=== PATIENT | male | born 1950 | race Caucasian/White ===

== ENCOUNTER → 2016-06-28 | Outpatient (CLI) | payer OTHER, MEDICARE ==
--- NOTE | 2016-06-28 11:20 | DX ---
Bilateral Hips, 3 views History: Pain, evaluate for arthritis or chondrocalcinosis, M25.551 Comparison: October 09, 2013 Findings: The femoral heads remain normally located in the bilaterally short acetabula. Degenerative and/or posttraumatic calcification of the lateral left acetabular labrum remains, slightly increased. There is a stable small hypertrophic ridge of the medial left femoral head. There is some subtle deg enerative cyst formation associated with the right hip joint and each lateral acetabulum. Calcificati on of the pubic symphysis cartilage is again present. The SI joints and pubic symphysis remain normal ly aligned. Overall pelvic mineralization remains normal. There are stable bilateral pelvic phlebolit hs. Impression: Little change since September 2013. Please see above.
== END ==
LOC: BMCIMAGING 10:04
PROVIDERS: ATTEND Internal Medicine Rheumatology
DX: M25.551 Pain in right hip (principal); M25.552 Pain in left hip

== ENCOUNTER 2017-04-04 11:51 | Observation (INO) | payer OTHER, MEDICARE ==
--- NOTE | 2017-04-04 12:21 | CPEKG ---
Heart Rate: 46 RR Interval: 1304 P-R Interval: 200 QRSD Interval: 86 QT Interval: 456 QTC Interval: 399 P [place]: 81 QRS [place]: -87 T Wave [place]: 30 EKG Severity - ABNORMAL ECG - EKG Impression: SINUS BRADYCARDIA EKG Impression: LEFT ANTERIOR FASCICULAR BLOCK Electronically Signed By: Jesus Perera 04-Apr-2017 15:18:50
[2017-04-04] MEDS ORDERED: NS 1,000 ML IV ONE (12:34)
[2017-04-04] MEDS ORDERED: ASPIRIN 81 MG CHEWABLE TAB PO ONE (12:49)
[2017-04-04] MEDS ORDERED: NS 500 ML IV ONE (12:51)
[2017-04-04 12:54] LABS: % IMMATURE GRANULYOCYTES 0.1 % (0.0-1.1); ABSOLUTE IMMATURE GRANULOCYTES 0.01 10^3/uL (0.00-0.10); ADD DIFF? NO; ADD MORPH? NO; ADD SCAN? NO; ATYPICAL LYMPHOCYTE FLAG 0 (0-99); FRAGMENT RBC FLAG 0 (0-99); HEMATOCRIT 44.6 % (40.0-51.0); HEMOGLOBIN 15.4 g/dL (13.7-17.5); LEFT SHIFT FLG 0 (0-99); LIPEMIA HEMOLYSIS FLAG 90 (0-99); MEAN CELL HEMOGLOBIN 32.4 pg (27.9-34.1); MEAN CELL HEMOGLOBIN CONCENTR. 34.5 g/dL (32.4-36.7); MEAN CELL VOLUME 93.7 fL (81.5-99.8); MEAN PLATELET VOLUME 9.6 fL (8.7-11.7); PLATELET CLUMPS FLAG 0 (0-99); PLATELET COUNT 229 10^3/uL (150-400); RED BLOOD CELL COUNT 4.76 10^6/uL (4.40-6.38); RED CELL DISTRIBUTION WIDTH 12.1 % (11.5-15.2)
--- NOTE | 2017-04-04 12:56 | EDPHY ---
H & P Time Seen by Provider: 04/04/17 12:39 HPI/ROS: HPI Near fainting. 67-year-old male by private vehicle. This patient reports that he went swimming this morning as he does 3 to 4 times a week. He felt fine while swimming. He reports that he took a shower when he got home and went to his desk to work on his computer. He reports that shortly after he sat down a wave of nausea came over him any felt very lightheaded. He reports that he then got himself to a couch in late down. He started feeling a little bit better but then got up from the couch went back to his computer sat down again and the same thing happen. He stated that he would have lost consciousness if he did not make it to the couch in short order. He reports that he noticed this morning he had some left shoulder aching which has persisted for a few hours. He reports that he has had pain in his left shoulder in the past but it has been sometime. He denies any associated chest pain. No headache. No shortness of breath. No palpitations. No loss of sensation or weakness in his extremities. He is not had a fever. He is not on beta blockers or calcium channel blockers. ROS: Constitutional: No fever, no chills. As above. Eyes: No discharge. No changes in vision. ENT: No sore throat. No nasal congestion or rhinorrhea. Respiratory: No cough. No shortness of breath. Cardiac: No chest pain, no palpitations. Gastrointestinal: No abdominal pain, no vomiting, no diarrhea. Genitourinary: No hematuria. No dysuria or increased frequency with urination. Musculoskeletal: No back pain. No neck pain. No myalgias or arthralgias. Skin: No rashes. Neurological: No headache. No focal weakness or altered sensation. Past medical history: GERD, asthma, poly myalgia rheumatica, lumbar stenosis, right knee surgery. Social history: He is . Currently here by himself. Nonsmoker. Denies alcohol. Physical Exam: General Appearance: Alert, no distress. This patient is responding to questions appropriately and in full sentences. This patient appears well- hydrated and well-nourished. Eyes: Pupils equal and round no pallor or injection. No lid edema, erythema or injection. Respiratory: There are no retractions, lungs are clear to auscultation with good air movement bilaterally. Cardiovascular: Regular rate and rhythm. No murmur. Gastrointestinal: Abdomen is soft and nontender, no masses, bowel sounds normal. No focal tenderness at McBurney's point. No Ngo sign. Neurological: Motor sensory function is grossly intact. Cranial nerves are normal. Gait is normal. Skin: Warm and dry, no rashes. Musculoskeletal: Neck is supple and nontender. Extremities are symmetrical. All joints range without pain or impingement. Psychiatric: No agitation. No depression. Database: EKG: EKG time is 12:19 p.m.; EKG shows a narrow complex normal sinus rhythm with a ventricular rate of 46. The NM, QRS, QT intervals are within normal limits. There are no ST-T wave changes indicative of ischemic or injury pattern. No evidence of right heart strain. No evidence of Brugada syndrome, WPW, hypertrophic cardiomyopathy. Interpreted by me. Imaging: Chest x-ray PA and lateral; the cardiac mediastinal silhouette is unremarkable. No evidence of infiltrate or pneumothorax. No acute cardiopulmonary disease process noted. Interpreted by me. Procedures: Emergency department course: IV placed. He was placed on a cardiac cath lab manager. EKG was obtained and reviewed by myself. He was started on IV normal saline with 500 cc to be given over the next hour. He was given 324 mg of chewed aspirin. Vital signs reviewed. Afebrile and normal except for bradycardia with rates in the upper 40s. 2:30 p.m., patient re-evaluated. Resting comfortably at this time. No chest pain. Denies any symptoms. Results of emergency department workup discussed with him. Plan for admission reviewed. All of his questions were answered. 2:40 p.m., spoke with on-call hospitalist Dr. Woodard. Case discussed in detail with her. She accepts the patient for admission, telemetry observation. Differential Diagnosis: The differential diagnosis on this patient includes but is not limited to near syncope, cardiac arrhythmia, dehydration, vasovagal near syncope. Pulmonary embolism, subarachnoid hemorrhage, CVA, acute coronary syndrome, seizure unlikely. This represents a partial list of diagnoses considered. These considerations are based on history, physical exam, past history, reassessment and diagnostic testing. Smoking Status: Never smoked Constitutional: Initial Vital Signs Temperature (C) 36.5 C 04/04/17 11:54 Heart Rate 49 L 04/04/17 11:54 Respiratory Rate 16 04/04/17 11:54 Blood Pressure 122/63 H 04/04/17 11:54 O2 Sat (%) 98 04/04/17 11:54 O2 Delivery Mode Room Air Allergies/Adverse Reactions: Cephalosporins Allergy (Unknown, Verified 04/04/17 11:53) clarithromycin [From Biaxin] Allergy (Unknown, Verified 04/04/17 11:53) penicillin G [Penicillin G] Allergy (Unknown, Verified 04/04/17 11:53) Rash levofloxacin [From Levaquin] Allergy (Verified 04/04/17 11:53) Sulfa (Sulfonamide Antibiotics) Allergy (Verified 04/04/17 11:53) sulfamethoxazole [From Bactrim] Allergy (Verified 04/04/17 11:53) trimethoprim [From Bactrim] Allergy (Verified 04/04/17 11:53) Home Medications: Medication Instructions Recorded VALACYCLOVIR HCL [Valtrex] 1,000 mg PO PRN 09/02/10 Flonase Nasal Sharon 08/23/14 Medical Decision Making - Diagnostics Imaging Results: Imaging Impressions Chest X-Ray 04/04/17 12:49 Impression: Nothing acute identified. - Data Points Laboratory Results: Laboratory Results 04/04/17 12:41 04/04/17 12:41 04/04/17 04/04/17 04/04/17 12:41 12:41 12:41 WBC 7.09 10^3/uL 10^3/uL (3.80-9.50) RBC 4.76 10^6/uL 10^6/uL (4.40-6.38) Hgb 15.4 g/dL g/dL (13.7-17.5) Hct 44.6 % % (40.0-51.0) MCV 93.7 fL fL (81.5-99.8) MCH 32.4 pg pg (27.9-34.1) MCHC 34.5 g/dL g/dL (32.4-36.7) RDW 12.1 % % (11.5-15.2) Plt Count 229 10^3/uL 10^3/uL (150-400) MPV 9.6 fL fL (8.7-11.7) Neut % (Auto) 78.6 % H % (39.3-74.2) Lymph % (Auto) 13.3 % L % (15.0-45.0) Delta % (Auto) 7.3 % % (4.5-13.0) Eos % (Auto) 0.6 % % (0.6-7.6) Baso % (Auto) 0.1 % L % (0.3-1.7) Nucleat RBC Rel Count 0.0 % % (0.0-0.2) Absolute Neuts (auto) 5.57 10^3/uL 10^3/uL (1.70-6.50) Absolute Lymphs (auto) 0.94 10^3/uL L 10^3/uL (1.00-3.00) Absolute Monos (auto) 0.52 10^3/uL 10^3/uL (0.30-0.80) Absolute Eos (auto) 0.04 10^3/uL 10^3/uL (0.03-0.40) Absolute Basos (auto) 0.01 10^3/uL L 10^3/uL (0.02-0.10) Absolute Nucleated RBC 0.00 10^3/uL 10^3/uL (0-0.01) Immature Gran % 0.1 % % (0.0-1.1) Immature Gran # 0.01 10^3/uL 10^3/uL (0.00-0.10) PT 13.8 SEC SEC (12.0-15.0) INR 1.07 (0.83-1.16) APTT 25.7 SEC SEC (23.0-38.0) Sodium 140 mEq/L mEq/L (134-144) Potassium 4.2 mEq/L mEq/L (3.5-5.2) Chloride 103 mEq/L mEq/L (97-110) Carbon Dioxide 28 mEq/l mEq/l (22-31) Anion Gap 9 mEq/L mEq/L (8-16) BUN 22 mg/dL mg/dL (7-23) Creatinine 1.1 mg/dL mg/dL (0.7-1.3) Estimated GFR > 60 Glucose 83 mg/dL mg/dL (70-100) Calcium 9.2 mg/dL mg/dL (8.5-10.4) Troponin I < 0.012 ng/mL ng/mL (0.000-0.034) Medications Given: Discontinued Medications Aspirin (Aspirin) 324 mg PO EDNOW ONE Stop: 04/04/17 12:50 Last Admin: 04/04/17 12:58 Dose: 324 mg Sodium Chloride (Ns) 1,000 mls @ 0 mls/hr IV ONCE ONE PRN Reason: Wide Open Stop: 04/04/17 12:35 Last Admin: 04/04/17 14:17 Dose: 1,000 mls Sodium Chloride (Ns) 500 mls @ 1,000 mls/hr IV EDNOW ONE PRN Reason: Protocol Stop: 04/04/17 13:20 Last Admin: 04/04/17 13:00 Dose: 500 mls Departure - Departure Disposition: [facility] Inpatient Acute Clinical Impression: Near syncope Referrals: Meliton Flower MD [Primary Care Provider] - As per Instructions
[2017-04-04 13:03] LABS: ANION GAP 9 mEq/L (8-16); CALCIUM 9.2 mg/dL (8.5-10.4); CARBON DIOXIDE 28 mEq/l (22-31); CHLORIDE 103 mEq/L (97-110); CREATININE 1.1 mg/dL (0.7-1.3); GLOMERULAR FILTRATION RATE > 60; GLUCOSE 83 mg/dL (70-100); POTASSIUM 4.2 mEq/L (3.5-5.2); SODIUM 140 mEq/L (134-144)
[2017-04-04 13:08] LABS: INR 1.07 (0.83-1.16); PROTIME(PATIENT) 13.8 SEC (12.0-15.0)
[2017-04-04 13:09] LABS: APTT 25.7 SEC (23.0-38.0)
[2017-04-04 13:15] LABS: TROPONIN I < 0.012 ng/mL (0.000-0.034)
[2017-04-04] MEDS ORDERED: traMADol 50 MG TAB PO PRN (16:42)
[2017-04-04] MEDS ORDERED: ACETAMINOPHEN 325 MG TAB PO PRN (16:44)
[2017-04-04] MEDS ORDERED: ONDANSETRON 4 MG/2 ML VIAL IVP PRN (16:44)
[2017-04-04] MEDS ORDERED: NS 1,000 ML IV SCH (16:45)
[2017-04-04] MEDS ORDERED: ZOLPIDEM TARTRATE 5 MG TAB PO PRN (16:45)
--- NOTE | 2017-04-04 18:12 | GHP ---
[f rep st] HISTORY AND PHYSICAL DATE OF ADMISSION: 04/04/2017 CHIEF COMPLAINT: Lightheadedness. HISTORY: Jamal is a 67-year-old male who has episodes of recurrent lightheadedness prompting him t o come to the emergency room. He swims every morning in an outdoor pool, and this morning it was garo te chilly so we decided to get in the hot tub before he exercised, which he does not typically do. Marry edmonds then swam sprints and got out of the pool and got into the hot tub for a second time and feels that may have dehydrated him. He subsequently went home, was sitting in a chair at his computer, when hogue ddenly he felt very nauseated and faint. He went to the couch to lie down and felt a little better. When he tried to get up again; however, he had complete recurrence of symptoms, at which point they decided to come to the emergency room. He does complain of some left shoulder and neck pain, which marry edmonds felt when he woke up this morning; although, he thinks this is his chronic musculoskeletal pain mercy t he has had for quite some time, and he took a Celebrex. He does have a strong family history of co ronary artery disease, gets a stress test every 2 years, and is due for it again in May. PAST MEDICAL HISTORY: 1. Polymyalgia rheumatica, but off steroids for quite some time. 2. Mild asthma. 3. Lumbar spinal stenosis. PAST SURGICAL HISTORY: Right knee surgery. MEDICATIONS: Please see computer record for full detailed list. ALLERGIES: Cephalosporin, clarithromycin, penicillin, Levaquin, and sulfa. SOCIAL HISTORY: He used to smoke cigars and pipes but none now. He drinks 2 glasses of wine per day . He lives with his . 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 REVIEW OF SYSTEMS: Complete review of systems obtained. Review of systems negative regarding consti tutional, HEENT, GI, pulmonary, cardiovascular, , hematology, skin, muscular, endocrine, and psych except for positives as in HPI. FAMILY HISTORY: His father had his 1st TX at age 49 and eventually of complications of a bypass surgery at 63. His mom had a bypass surgery in her 80s. PHYSICAL EXAMINATION: GENERAL: Well-developed, well-nourished male, in no acute distress. VITAL SI GNS: Temperature is 36.5, pulse 49, blood pressure 122/63, satting 98% on room air. HEENT: Eyes wi th normal conjunctivae. Pupils react to light. ENT: Normal ears, nose. Hearing intact. Normal te eth. Oropharynx moist. NECK: Trachea midline. No thyromegaly. CHEST: Normal effort. LUNGS: Randy ar to auscultation bilaterally. CARDIOVASCULAR: Regular rhythm. No murmur. No lower extremity afia ma. ABDOMEN: Soft, nontender. No hepatosplenomegaly. SKIN: Warm, dry, and intact. No rash. MUS CULOSKELETAL: No cyanosis or clubbing. Strength 5/5 in upper and lower extremities. NEUROLOGIC: C ranial nerves intact. Normal sensation to light touch. PSYCH: Alert and oriented x3. Normal mood and affect. Normal insight and judgment. Normal memory. LABORATORY DATA: White count 7.09, hematocrit 44.6, platelets 229. Sodium 140, potassium 4.2, chlor tylor 103, bicarb 28, BUN 22, creatinine 1.1, glucose 83. Troponins negative. INR is 1.07., EKG viewed by me and my personal interpretation is sinus bradycardia, heart rate 46, with left anteri or fascicular block. Chest x-ray is negative. ASSESSMENT/PLAN: 1. Presyncope: My suspicion is he may do have be vasodilated due to his extended time in the hot b today. He may also be dehydrated. Will hydrate overnight with intravenous fluid normal saline. W ill check orthostatics. Will check an echocardiogram and a TSH. He is a little bradycardic at prese ntation; however, he is quite active and works out so this may be from his conditioning state, and I suspect is asymptomatic. We will watch him on telemetry and ambulate to assess for recurrence of sym ptoms. 2. Left shoulder pain: I suspect this is musculoskeletal. I did offer him a stress test; however, he declined, as he wishes to pursue it as scheduled in May with Dr. Quesada. 3. Polymyalgia rheumatica: He has had no steroids for a prolonged period of time, but I will check an a.m. cortisol. CODE STATUS: Full. DISPOSITION: Will admit to observation. He would like to go home as soon as possible tomorrow peetr zambrano. DEEP VEIN THROMBOSIS PROPHYLAXIS: He is moderate risk. Subcu Lovenox only if he has a prolonged sta y. /[id number]/MODL
[2017-04-05 05:35] LABS: % IMMATURE GRANULYOCYTES 0.2 % (0.0-1.1); ABSOLUTE IMMATURE GRANULOCYTES 0.01 10^3/uL (0.00-0.10); ADD DIFF? NO; ADD MORPH? NO; ADD SCAN? NO; ATYPICAL LYMPHOCYTE FLAG 10 (0-99); FRAGMENT RBC FLAG 0 (0-99); HEMATOCRIT 39.3 % (40.0-51.0); HEMOGLOBIN 13.7 g/dL (13.7-17.5); LEFT SHIFT FLG 0 (0-99); LIPEMIA HEMOLYSIS FLAG 90 (0-99); MEAN CELL HEMOGLOBIN 32.5 pg (27.9-34.1); MEAN CELL HEMOGLOBIN CONCENTR. 34.9 g/dL (32.4-36.7); MEAN CELL VOLUME 93.3 fL (81.5-99.8); MEAN PLATELET VOLUME 9.7 fL (8.7-11.7); PLATELET CLUMPS FLAG 0 (0-99); PLATELET COUNT 205 10^3/uL (150-400); RED BLOOD CELL COUNT 4.21 10^6/uL (4.40-6.38); RED CELL DISTRIBUTION WIDTH 12.3 % (11.5-15.2)
[2017-04-05 05:47] LABS: ANION GAP 7 mEq/L (8-16); CALCIUM 8.5 mg/dL (8.5-10.4); CARBON DIOXIDE 22 mEq/l (22-31); CHLORIDE 111 mEq/L (97-110); CHOLESTEROL 168 mg/dL (140-220); CHOLESTEROL/HDL RATIO 2.55 RATIO (1.00-4.97); GLOMERULAR FILTRATION RATE > 60; GLUCOSE 87 mg/dL (70-100); HIGH DENSITY LIPOPROTEIN 66 mg/dL (40-65); LDL/HDL RATIO 1.36 RATIO (1.00-3.64); LOW DENSITY LIPOPROTEIN 90 mg/dL (80-100); NON-HIGH DENSITY LIPOPROTEIN 102 mg/dL (90-129); POTASSIUM 4.2 mEq/L (3.5-5.2); SODIUM 140 mEq/L (134-144); TRIGLYCERIDE 60 mg/dL (40-150); VERY LOW DENSITY LIPOPROTEINS 12 mg/dL (8-25)
[2017-04-05 06:15] LABS: CORTISOL-AM 9.8 ug/dL (4.5-22.7)
[2017-04-05 08:15] VITALS: RESP 18; TEMP 98.1
[2017-04-05] MEDS ORDERED: PANTOPRAZOLE SODIUM 40 MG TAB PO PRN (09:00)
[2017-04-05] MEDS ORDERED: FLUTICASONE NASAL 120 SPRAYS/16 GM MDI EACHNARE SCH (09:00)
--- NOTE | 2017-04-05 10:16 | CPEKG ---
Heart Rate: 53 RR Interval: 1132 P-R Interval: 204 QRSD Interval: 86 QT Interval: 452 QTC Interval: 425 P [place]: 75 QRS [place]: 268 T Wave [place]: 20 EKG Severity - ABNORMAL ECG - EKG Impression: SINUS ARRHYTHMIA, RATE 45-59 EKG Impression: LEFT ANTERIOR FASCICULAR BLOCK Electronically Signed By: Antoine Noriega 05-Apr-2017 18:31:39
[2017-04-05 11:34] VITALS: BP 118/65; PULSE 45; O2SAT 92
--- NOTE | 2017-04-05 14:39 | ECHO ---
[email or web address] [address] Main: [phone] Fax: Transthoracic Echocardiogram Name: RUKHSANA KILPATRICK MR#: [id number] Study Date: 04/05/2017 Study Time: 08:25 AM Date of : 1950 Age: 67 year(s) Height: 177.8 cm (70 in.) Weight: 64.86 kg (143 lb.) BSA: 1.81 m2 Gender: Male Examination: Echo Indication: Pre syncope Image Quality: Contrast: Requested by: Aby Woodard BP: 101 mmHg/59 mmHg Heart Rate: Rhythm: Indication: Pre syncope Procedure Staff Machinery Dismantler: Camila Garner Reading Physician: Jer Bolanos Requesting Provider: Conclusions: Normal global systolic LV function. EF is 72 %. Mild mitral valve regurgitation is present. Mild tricuspid regurgitation is present. Ascending aorta is borderline dilated.. Measurements: Chambers Valvular Assessment AV/MV Valvular Assessment TV/PV Normal Normal Normal Name Value Range Name Value Range Name Value Range Ao Fina (MM): 3.2 cm (2.2 cm-3.7 AV Vmax: 0.84 m/s (1 m/s-1.7 TR Vmax: 2.30 mm/s ( - ) cm) m/s) TR PGmax: 21 mmHg ( - ) IVSd (2D): 0.8 cm (0.6 cm-1.1 AV maxP mmHg ( - ) syst. PAP: 26 mmHg ( - ) cm) AV meanP mmHg ( - ) LVDd (2D): 4.5 cm (4.2 cm-5.9 MV E Vmax: 0.85 m/s ( - ) cm) MV A Vmax: 0.55 m/s ( - ) LVDs (2D): 2.6 cm (2.1 cm-4 MV E/A: 1.55 ( - ) cm) LVPWd (2D): 0.7 cm (0.6 cm-1 cm) LVEF (MOD4): 72 % (>=55 %) Continued Measurements: Chambers Valvular Assessment TV/PV Name Value Name Value LADs Lon.6 cm CVP (est.): 5 mmHg LA Area: 15.8 cm2 Patient: RUKHSANA KILPATRICK Study Date: 04/05/2017 Page 1 of 2 08:25 AM Additional Vessels Name Value Ao Ascendin.8 cm Findings: Left Ventricle: Normal size left ventricle. No LV hypertrophy. Normal global systolic LV function. EF is 72 %. No regional wall motion abnormality. Right Ventricle: Normal size right ventricle. Left Atrium: The left atrium is normal in size. Right Atrium: The right atrium is normal in size. Mitral Valve: The mitral valve is normal in appearance and function. Mild mitral valve regurgitation is present. Aortic Valve: The aortic valve is normal in appearance and function. Tricuspid Valve: The tricuspid valve is normal in appearance and function. Mild tricuspid regurgitation is present. The pulmonary artery pressure is normal. Pulmonic Valve: The pulmonic valve is normal in appearance and function. Trivial to mild pulmonic valve regurgitation. Aorta: Ascending aorta is borderline dilated.. The aorta is normal. Pericardium: No pericardial effusion. (No Signature Object) Patient: RUKHSANA KILPATRICK Study Date: 04/05/2017 Page 2 of 2 08:25 AM [id number]
--- NOTE | 2017-04-05 14:40 | ASMTCMCOM ---
CM Note CM Note Notes: Patient admitted for pre-syncope, likely related to dehydration and vasodilation after hot tub use. He has a strong family history of CAD so an EKG was ordered. Patient lives with his , is active and independent, and will likely discharge home when medically cleared. CM available if he has any discharge needs. Current CM Discharge Plan: home with Date Signed: 04/05/2017 02:39 PM Electronically Signed By:Lorri Moore RN
--- NOTE | 2017-04-05 16:15 | PDDCSUM ---
Discharge Summary Discharge Summary: DISCHARGE SUMMARY FOLLOW-UP ITEMS: Reassess outpatient heart rate and blood pressure DATE OF ADMISSION: 04/04/2017 DATE OF DISCHARGE: 04/05/2017 DISCHARGE DIAGNOSES: 1. Acute near syncope 2. Sinus bradycardia CONSULTATIONS: None PROCEDURES / IMAGING: Echocardiogram demonstrating normal ejection fraction, normal valves CHIEF COMPLAINT: Acute near syncope SUBJECTIVE: Patient is feeling well at time discharge, he has not had recurrence of symptoms PHYSICAL EXAM ON DISCHARGE: Systolic blood pressure is 100-130, heart rate 50-70, afebrile overnight, satting well on room air, alert awake oriented x3, no apparent distress, pain level 0 10, heart rhythm is regular, lungs are clear to auscultation bilaterally , carotids demonstrate no bruits LABS ON DISCHARGE: An cortisol 9.8, LDL 90, TSH 3, troponin negative x3, potassium 4.2, creatinine 1, white blood count 5000, hemoglobin 13.7 HOSPITAL COURSE BY PROBLEM: Patient presented with acute near syncope in the setting significant physical exertion as well as likely thermal vasodilation in the setting of hot tub use. Patient reports that he exerted himself greater than his baseline level of exercise, and immediate prior he had utilized hot tub. A combination of these 2 activities most likely resulted in dermal vasodilation as well as peripheral blood flow, resulting in near syncope. At baseline, the patient has sinus bradycardia, which is most likely secondary to his healthy, athletic heart. His echocardiogram demonstrated no abnormalities and the patient had no episodes of AV block on telemetry. He exercises vigorously regularly without any symptoms, and does not require an exercise stress test at this time. Patient will otherwise follow up with his primary care provider and will follow up with his primary insulation cupola operator in May 2017. The patient reports that he has a scheduled stress test, the patient elects to proceed with that test at this time. DISCHARGE MEDICATIONS: Please see official discharge medication reconciliation sheet in chart, continue all home Rx. DISCHARGE INSTRUCTIONS: Please follow-up with your PCP and Dr. Quesada.
--- NOTE | 2017-04-05 16:24 | ASDISCHSUM ---
Discharge Information Plan Status:Home with No Needs Medically Cleared to Leave:04/04/2017 Discharge Date:04/05/2017 03:53 PM CM D/C Disposition: ADT D/C Disposition:Home, Routine, Self-Care Projected Discharge Date:04/05/2017 12:00 AM Transportation at D/C: Discharge Delay Reason: Follow-Up Date:04/05/2017 12:00 AM Discharge Slot: Final Diagnosis: Placement Information Patient Contact Information Contact Name:SHANTHI Relationship: Address:[address] Home Phone: City:[place] Alternate Phone: State/Zip Code:[place] [address] Email: Financial Information Financial Class: Primary Plan Desc:MEDICARE OUTPATIENT Primary Plan Number:[id number] Secondary Plan Desc:[employer]/MDR SUPPLEMENT Secondary Plan Number:[id number] Assessment Information LACE LACE Acuity / Level of Care Answers: Was the patient admitted to hospital via the emergency department? Yes: Comorbidities - select Answers: Chronic pulmonary disease all that apply Emergency dept visits in Answers: 1 last 6 months Score: 6 Date Signed: 04/04/2017 03:11 PM Electronically Signed By:Doris Mccatrhy RN [facility] CM Progress Note CM Note CM Note Notes: Patient admitted for pre-syncope, likely related to dehydration and vasodilation after hot tub use. He has a strong family history of CAD so an EKG was ordered. Patient lives with his , is active and independent, and will likely discharge home when medically cleared. CM available if he has any discharge needs. Current CM Discharge Plan: home with Date Signed: 04/05/2017 02:39 PM Electronically Signed By:Lorri Moore RN Intervention Information Intervention Type:*AWAN-Signed Date of Service:04/05/2017 09:36 AM Patient Type:Observation Staff Member:Daniela Zepeda Hours: Discipline: Severity: Comment:
[2017-04-06] MEDS ORDERED: ENOXAPARIN 40 MG/0.4 ML SYR SC SCH (09:00)
== END 2017-04-05 15:53 | disposition home or self-care (01) ==
LOC: F2W 15:57
PROVIDERS: ADMIT Internal Medicine; ATTEND Internal Medicine
DX: R55 Syncope and collapse (principal); R00.1 Bradycardia, unspecified; K21.9 Gastro-esophageal reflux disease without esophagitis; J45.909 Unspecified asthma, uncomplicated; M35.3 Polymyalgia rheumatica; M48.061 Spinal stenosis, lumbar region without neurogenic claudication